=== PATIENT | female | born 1995 | race African-American/Black ===

== ENCOUNTER 2017-09-11 01:16 | Emergency (ER) | payer SELFPAY ==
[2017-09-11] MEDS ORDERED: diphenhydrAMINE 50 MG/ML VIAL ONE (01:51)
[2017-09-11] MEDS ORDERED: Metoclopramide HCl 10 MG/2 ML VIAL ONE (01:51)
--- NOTE | 2017-09-11 07:41 | CT ---
PRELIMINARY REPORT/[facility]/EMERGENCY AFTER HOURS PROCEDURE: EXAM: CT Head Without Intravenous Contrast CLINICAL HISTORY: 22 years old, female; Pain; Headache; Headache not specified; Patient HX: BARBER TECHNIQUE: Axial computed tomography images of the head/brain without intravenous contrast. COMPARISON: No relevant prior studies available. FINDINGS: Brain: Mild volume loss No hemorrhage. No significant white matter disease. No edema. Ventricles: Unremarkable. No ventriculomegaly. Bones/joints: Unremarkable. No acute fracture. Soft tissues: Unremarkable. Sinuses: Unremarkable as visualized. No acute sinusitis. Mastoid air cells: Unremarkable as visualized. No mastoid effusion. IMPRESSION: No intracranial hemorrhage.Please see discussion above. Thank you for allowing us to participate in the care of your patient. Dictated and Authenticated by: Doni Marquez MD 09/11/2017 3:17 AM Central Time ([place] \T\ [place]) FINAL REPORT EMERGENT AFTER HOURS CT HEAD 09/11/2017 HISTORY: Headache. COMPARISON: None available. IMPRESSION: 1. No acute intracranial abnormality is demonstrated. 2. Findings are in agreement with the preliminary report by Ej. POS: [facility]
== END 2017-09-11 01:27 | disposition home or self-care (01) ==
LOC: ERS 01:16
DX: R51 Headache (principal); I10 Essential (primary) hypertension; J45.909 Unspecified asthma, uncomplicated; G43.909 Migraine, unspecified, not intractable, without status migrainosus; Z79.899 Other long term (current) drug therapy
CPT/HCPCS: 70450; 81025; 96365; 96375; J1200; J2765